=== PATIENT | female | born 1995 | race Caucasian/White ===

== ENCOUNTER 2017-06-05 00:59 | Inpatient (IN) ==
[2017-06-05] MEDS ORDERED: MAG-AL + SIM ORAL LIQUID 30ml PO PRN (01:28)
[2017-06-05] MEDS ORDERED: CALCIUM CARBONATE Chewable 500mg TABLET PO PRN ×2 (01:28→03:34)
[2017-06-05] MEDS ORDERED: ACETAMINOPHEN 500 MG TABLET PO PRN ×2 (01:28→03:34)
[2017-06-05] MEDS ORDERED: METHYLERGONOVINE 0.2 MG/ML INJECTION IM PRN (01:28)
[2017-06-05] MEDS ORDERED: CARBOPROST 250 MCG/ML INJECTION IM PRN (01:28)
[2017-06-05] MEDS ORDERED: D5LR 1,000 ML IV SCH (01:30)
[2017-06-05] MEDS ORDERED: D5LR 1,000 ML IV PRN (01:32)
[2017-06-05] MEDS ORDERED: AMPICILLIN 2 GM in NS 100 ML IV ONE (01:35)
[2017-06-05] MEDS: LR 1,000 ML IV PRN ×3 (01:40→03:45)
[2017-06-05] MEDS ORDERED: OXYTOCIN DRIP 30 UNIT/500 ML ML IV PRN (01:45)
[2017-06-05 01:51] VITALS: BMI 28.4
[2017-06-05] MEDS ORDERED: CITRIC ACID/SODIUM CITRATE 30ml PO ONE (02:14)
[2017-06-05] MEDS ORDERED: FAMOTIDINE PB 20 MG/50 ML BAG IV ONE (02:14)
[2017-06-05] MEDS ORDERED: CEFAZOLIN PREMIX (MC ONLY) 2 GM/50 ML BAG IV ONE (02:14)
[2017-06-05] MEDS ORDERED: PHENYLEPHRINE INJ 10 MG/ML VIAL IV ONE (02:45)
[2017-06-05] MEDS ORDERED: SALINE FLUSH 10ml SYRINGE ONE (02:45)
[2017-06-05] MEDS ORDERED: FentaNYL 100 MCG/2 ML INJECTION ONE (02:47)
[2017-06-05] MEDS ORDERED: MORPHINE SULFATE PF 5mg/10ml INJ (Duramorph) ONE (02:47)
--- NOTE | 2017-06-05 02:48 | Anesthesia Preoperative Report ---
Anesthesia Epidural/Spinal Rec - Date and Time Date: 06/05/17 Preoperative Diagnosis: with heart tone problems Procedure: Plan: Spinal - Vital Signs Vital Signs: Temperature 97.9 F 06/05/17 01:46 Pulse Rate 89 06/05/17 01:46 Respiratory Rate 18 06/05/17 01:46 Blood Pressure 118/72 06/05/17 01:46 /Para: P:0 - Medictaions & Allergies Inpatient Medications: Current Medications Acetaminophen (Tylenol) 500 - 1,000 mg PO Q4H PRN PRN Reason: Pain Al Hydroxide/Mg Hydroxide (Maalox Plus) 30 ml PO Q3H PRN PRN Reason: Indigestion Calcium Carbonate (Tums) 500 - 1,000 mg PO Q2H PRN PRN Reason: Indigestion Carboprost Tromethamine (Hemabate) 250 mcg IM O PRN PRN Reason: .Downtime Citric Acid/Sodium Citrate (Oracit) 30 ml PO ONCE ONE Stop: 06/05/17 02:15 Last Admin: 06/05/17 02:26 Dose: 30 ml Dextrose/Lactated Ringer's (Dextrose 5%-Lactated Ringers) 1,000 mls @ 125 mls/ hr IV .Q8H RADHA Last Infusion: 06/05/17 02:45 Dose: 0 mls/hr Lactated Ringer's (Lactated Ringers) 1,000 mls @ 999 mls/hr IV .Q1H1M PRN Last Admin: 06/05/17 02:35 Dose: 999 mls/hr Ampicillin Sodium 2 gm/ Sodium (Chloride) 100 mls @ 200 mls/hr IV O ONE Stop: 06/05/17 02:04 Last Admin: 06/05/17 01:41 Dose: 200 mls/hr Ampicillin Sodium 1 gm/ Sodium (Chloride) 100 mls @ 200 mls/hr IV Q4H RADHA Dextrose/Lactated Ringer's (Dextrose 5%-Lactated Ringers) 1,000 mls @ 125 mls/ hr IV .Q8H PRN PRN Reason: Labor Oxytocin (Pitocin Drip) 30 unit in 500 mls @ 2 mls/hr IV .Q24H PRN; Protocol PRN Reason: Induction/Augmentation Last Infusion: 06/05/17 02:09 Dose: 0 mls/hr Cefazolin Sodium/Dextrose (Kefzol Premix (Mc Only)) 2 gm in 50 mls @ 100 mls/ hr IV PREOP ONE Stop: 06/05/17 02:43 Last Admin: 06/05/17 02:30 Dose: 100 mls/hr Famotidine/Sodium Chloride (Pepcid Premix) 20 mg in 50 mls @ 100 mls/hr IV O ONE Stop: 06/05/17 02:43 Last Infusion: 06/05/17 02:29 Dose: Infused Methylergonovine Maleate (Methergine) 0.2 mg IM O PRN Misoprostol (Cytotec) 800 mcg PA ONCE PRN Allergies/Adverse Reactions: Allergies Allergy/AdvReac Type Severity Reaction Status Date / Time No Known Allergies Allergy Verified 06/05/17 01:50 - Home Medications Home Medications: Home Medications Medication Instructions Recorded Confirmed Type Vitamins 06/03/17 History - Medical History Other History: Reports: Now - Surgical History HEENT Surgeries: Reports: Tonsillectomy (') Anesthesia Reactions: None Hx Family Anesthesia Reaction: No History of Motion Sickness: No - Social History Smoking Status: Never smoker Second Hand Exposure: No Substance Use Type: does not use Alcohol Intake Frequency: does not drink - Pertinent Findings Lab Data: CBC and BMP 06/05/17 01:39 - Physical Exam Respiratory Exam: lungs clear Cardiovascular Exam: regular rate and rhythm - Airway Assessment Mallampati Score: II TMD: 3 Fingerbreadths Neck Extension: fair Overall Assessment: may be difficult intubation - ASA ASA Score: 2, E - Discussion Discussion: Discussed risks/options/alternatives of anesthesia and questions answered. Patient consents. Nursing pain assessment noted. Anesthesia Discussion: spouse Attestation Statement: Prior to the delivery of any anesthetic medication, I examined the patient, developed the plan, obtained the patient's consent and discussed the risk and benefits of the procedure with the patient/guardian.
[2017-06-05] MEDS: OXYTOCIN BOLUS BAG 30 UNIT/500 ML ML IV SCH ×2 (03:15→03:31)
[2017-06-05] MEDS ORDERED: METOCLOPRAMIDE 10mg/2ml INJECTION IVP PRN (03:29)
[2017-06-05] MEDS ORDERED: NALOXONE 2 MG/2 ML INJECTION PFS IVP PRN (03:29)
[2017-06-05] MEDS ORDERED: ONDANSETRON 4 MG/2 ML INJECTION IVP PRN (03:29)
[2017-06-05] MEDS ORDERED: NALBUPHINE 10 MG/ML INJECTION IVP PRN (03:29)
[2017-06-05] MEDS ORDERED: HYDROCORTISONE 2.5% CREAM 30gm RECTALLY PRN (03:34)
[2017-06-05] MEDS ORDERED: SIMETHICONE 80 MG CHEWABLE TABLET PO PRN (03:34)
[2017-06-05] MEDS ORDERED: DiphenhydrAMINE 25 MG CAPSULE PO PRN (03:34)
[2017-06-05] MEDS ORDERED: OXYTOCIN DRIP 30 UNIT/500 ML ML IV SCH (03:45)
[2017-06-05] MEDS: D5LR 1,000 ML IV SCH ×2 (05:12→23:27)
[2017-06-05] MEDS ORDERED: AMPICILLIN 1 GM in NS 100 ML IV SCH (05:35)
--- NOTE | 2017-06-05 06:51 | Progress Note ---
DATE: 06/05/2017 This is a progress note on a patient of Dr. Beckett. Ms. Harrison presented with grossly ruptured membranes at home. She had blood- stained fluid and has continued to have that. Initially heart tones were fairly flat. Baby developed some variability. After IV fluid bolus, we started Pitocin. She only received 2 units an hour and baby started having deep variable decelerations to 60 beats per minute. These have been repetitive. We stopped the Pitocin, but she continues to have those. I have recommended that we move toward delivery. Her cervix is posterior and I can't even reach it to assess dilatation. As she is remote from delivery, I am concerned that the baby will not tolerate any further labor than this. We have discussed the risk of that and she agrees. The crew has been called. SANDY
--- NOTE | 2017-06-05 08:29 | Operative Note ---
Operative Note - Date of Operation Date of Operation: 06/05/17 - General : 1 Para: 0 Estimated or Known Gestational Age (weeks): 37 Estimated or Known Gestational Age (days): 2 - Preoperative Diagnosis Nonreassuring FHT, Other (SROM with bloody fluidy, suspicious for abruption) - Postoperative Diagnosis nonreassuring FHT, abruptio placentae - Procedure Primary, Low-transverse - Surgeon Surgeon: Aura Ellison MD - Delivery Agent OB Delivery Agent: Marisol Phillips MD - Anesthesia Anesthesia Provider: Dash Lang CRNA Anesthesia Type: Spinal - Complications Complications: None - Estimated Blood Loss Estimated Blood Loss:: 700 - Findings Findings: viable male, bloody fluid, normal uterus, normal adenexa - APGARS : 8,9 - Weight Weight (grams): 2996 - Name [place] Name: Choco - Indications Indications: Patient presented to with SROM. The fluid was bloody. I was called in for a c /s due to multiple decels and suspicion for an abruption. - Description of Procedure Description of Procedure: The patient was taken to the operating room where anesthesia was obtained . She was placed in the dorsal supine position with a leftward tilt. A Baldwin catheter was placed. During the baldwin placement, the FHT had a prolonged decel. She was then quickly prepared and draped in the normal sterile fashion. A Pfannenstiel incision was created 2 cm above the symphysis pubis and carried down to the fascia. The fascia was incised in the midline with the scalpel and then extended laterally with the Kim scissors. The fascia was elevated, and the underlying rectus muscles were dissected off. The peritoneum was entered bluntly. This was extended superiorly and inferiorly with good visualization of the bladder. The bladder blade was inserted. The bladder was low enough on the uterus that a bladder flap was not created. The lower uterine segment was incised in a transverse fashion [id number] with the scalpel and bluntly extended. The membranes were ruptured returning bloody fluid with small clots. The infants head was delivered atraumatically. The nose and mouth were suctioned. The cord was clamped and cut. The was handed to the waiting resuscitation team. Dr. Hoover was on his way and he was asked to attend the delivery due to the possible abruption. The placenta delivered spontaneously and was noted to have adherent clot. The uterus was exteriorized and cleared of all clots and debris. The uterus was closed with running, locked 0-monocryl. Hemostasis was obtained on the serosal edges with cautery. The uterus was returned to the abdomen. The gutters were cleared of all clots and debris. The uterine incision was inspected one final time and still noted to be hemostatic. The peritoneum was closed with running 2-0 vicryl. Hemostasis was obtained in the rectus muscles with the cautery. The fascia was closed with running 0-vicryl. Hemostasis was obtained in the subcutaneous tissue with the cautery. The skin was closed with 3-0 vicryl in a subcuticular manner. Steri- strips were placed. Sponge, sharp, and instrument counts were correct. The patient tolerated the procedure well and was taken to the recovery room in good condition.
--- NOTE | 2017-06-05 09:05 | Anesthesia Postoperative Note ---
- Date and Time Date: 06/05/17 Time: 09:04 - Status Patient Participated in Evaluation: Patient Participated in Person Vital Signs: Temperature 97.9 F 06/05/17 02:47 Pulse Rate 89 06/05/17 02:47 Respiratory Rate 18 06/05/17 02:47 Blood Pressure 118/72 06/05/17 02:47 Respiratory Function: Airway Patent Mental Status: Alert and Oriented Pain Intensity: 0 Hydration: Taking PO Fluids Complications During Recover: None Apparent - Follow-Up Instructions Instructions: Per Surgeon
[2017-06-05] MEDS ORDERED: VARICELLA LIVE VACCINE 0.5 ML VIAL SQ ONE (12:14)
--- NOTE | 2017-06-05 12:14 | OB/GYN Progress Note ---
OB-PP Progress Note - General POD:: Post Op Check Maternal Group B Strep: Positive Maternal blood type: A+ Maternal Rubella Status: Immune - Subjective Date: 06/05/17 Lochia: Minimal Pain: controlled Voiding: baldwin still in place - Objective Vital Signs: Last Vital Signs Temp 98.4 F 06/05/17 12:05 Pulse 66 06/05/17 12:05 Resp 16 06/05/17 12:05 BP 111/65 06/05/17 12:05 Pulse Ox 100 06/05/17 12:05 Urine Output: good General: alert and oriented Laboratory: Laboratory Results - last 24 hr 06/05/17 06/05/17 06/05/17 01:39 01:39 10:08 WBC 14.0 H 15.9 H RBC 3.89 L 3.57 L Hgb 11.6 L 10.5 L Hct 35.1 L 32.4 L MCV 90.2 90.8 MCH 29.8 29.4 MCHC 33.0 32.4 RDW Std Deviation 42.5 42.3 Plt Count 220 204 MPV 10.0 9.6 Immature Gran % (Auto) Not performed Neut % (Auto) Not performed Lymph % (Auto) Not performed [place] % (Auto) Not performed Eos % (Auto) Not performed Baso % (Auto) Not performed Neut # (Auto) Not performed Lymph # (Auto) Not performed [place] # (Auto) Not performed Eos # (Auto) Not performed Baso # (Auto) Not performed Abs Immat Gran (auto) Not performed Neutrophils % (Manual) 76.0 H Band Neutrophils % 6.0 Lymphocytes % (Manual) 12.0 L Monocytes % (Manual) 6.0 Neutrophils # (Manual) 12.1 H Band Neutrophils # 1.0 Lymphocytes # (Manual) 1.9 Monocytes # (Manual) 1.0 H RBC Morph Comment Normal Blood Type A Positive Antibody Screen Negative - Assessment Assessment: Primary C/S - Plan Plan: routine care The events of the delivery were reviewed with the patient and her family.
[2017-06-05] MEDS: SIMETHICONE 80 MG CHEWABLE TABLET PO SCH ×3 (12:16→21:51)
[2017-06-05] MEDS: IBUPROFEN 800 MG TABLET PO SCH ×3 (12:17→20:56)
[2017-06-05] MEDS: DOCUSATE CALCIUM 240 MG CAPSULE PO SCH (12:29)
[2017-06-05] MEDS: HYDROCODONE/APAP 5mg/325mg TABLET PO PRN (15:34)
[2017-06-05] MEDS: ACYCLOVIR 200 MG CAPSULE PO SCH (20:57)
[2017-06-06] MEDS: IBUPROFEN 800 MG TABLET PO SCH ×3 (05:29→21:17)
[2017-06-06] MEDS: HYDROCODONE/APAP 5mg/325mg TABLET PO PRN ×3 (05:30→21:16)
--- NOTE | 2017-06-06 08:28 | OB/GYN Progress Note ---
OB-PP Progress Note - General PPD1 Maternal Group B Strep: Positive Maternal blood type: A+ Maternal Rubella Status: Immune - Subjective Date: 06/06/17 Lochia: Minimal Pain: controlled Voiding: voiding - Objective Vital Signs: Last Vital Signs Temp 98.3 F 06/06/17 05:09 Pulse 81 06/06/17 05:09 Resp 18 06/06/17 05:09 BP 120/72 06/06/17 05:09 Pulse Ox 97 06/06/17 05:09 General: alert and oriented Abdomen: fundus firm, non-tender Incision: normal, no erythema, dry, intact Extremities: non-tender Laboratory: Laboratory Results - last 24 hr 06/05/17 10:08 WBC 15.9 H RBC 3.57 L Hgb 10.5 L Hct 32.4 L MCV 90.8 MCH 29.4 MCHC 32.4 RDW Std Deviation 42.3 Plt Count 204 MPV 9.6 Immature Gran % (Auto) Not performed Neut % (Auto) Not performed Lymph % (Auto) Not performed [place] % (Auto) Not performed Eos % (Auto) Not performed Baso % (Auto) Not performed Neut # (Auto) Not performed Lymph # (Auto) Not performed [place] # (Auto) Not performed Eos # (Auto) Not performed Baso # (Auto) Not performed Abs Immat Gran (auto) Not performed Neutrophils % (Manual) 76.0 H Band Neutrophils % 6.0 Lymphocytes % (Manual) 12.0 L Monocytes % (Manual) 6.0 Neutrophils # (Manual) 12.1 H Band Neutrophils # 1.0 Lymphocytes # (Manual) 1.9 Monocytes # (Manual) 1.0 H RBC Morph Comment Normal - Assessment Assessment: Primary C/S - Plan Plan: routine care Expected date of discharge: 06/07/17
[2017-06-06] MEDS: SIMETHICONE 80 MG CHEWABLE TABLET PO SCH ×4 (09:15→21:16)
[2017-06-06] MEDS: DOCUSATE CALCIUM 240 MG CAPSULE PO SCH (09:16)
[2017-06-06] MEDS: ACYCLOVIR 200 MG CAPSULE PO SCH ×3 (09:16→21:17)
[2017-06-06] MEDS: D5LR 1,000 ML IV SCH ×2 (16:16→21:16)
[2017-06-07] MEDS: HYDROCODONE/APAP 5mg/325mg TABLET PO PRN (02:10)
[2017-06-07] MEDS: SIMETHICONE 80 MG CHEWABLE TABLET PO SCH ×2 (02:10→09:16)
[2017-06-07 02:13] VITALS: RESP 16
[2017-06-07] MEDS: IBUPROFEN 800 MG TABLET PO SCH (06:06)
[2017-06-07] MEDS: ACYCLOVIR 200 MG CAPSULE PO SCH (09:16)
[2017-06-07] MEDS: DOCUSATE CALCIUM 240 MG CAPSULE PO SCH (09:16)
[2017-06-07 09:49] VITALS: BP 126/78; PULSE 91; TEMP 98.1; O2SAT 98
--- NOTE | 2017-06-07 11:24 | OB/GYN Progress Note ---
OB-PP Progress Note - General PPD2, PPD3 Maternal Group B Strep: Positive Maternal blood type: A+ Maternal Rubella Status: Immune - Subjective Date: 06/07/17 Lochia: Minimal Pain: controlled Voiding: voiding Nausea or Vomiting Present: No - Objective Vital Signs: Last Vital Signs Temp 98.1 F 06/07/17 09:15 Pulse 91 06/07/17 09:15 Resp 16 06/07/17 09:15 BP 126/78 06/07/17 09:15 Pulse Ox 98 06/07/17 09:15 General: alert and oriented Cardiovascular: regular rate,rhythm Respiratory: non-labored Abdomen: fundus firm Incision: normal, clean, dry, intact Extremities: non-tender Edema: none - Assessment Assessment: SP, Primary C/S - Plan Plan: routine care, discharge home
== END 2017-06-07 13:15 | disposition home or self-care (01) | DRG 765 ==
LOC: MC 00:59
PROVIDERS: ADMIT Obstetrics & Gynecology; ATTEND Obstetrics & Gynecology